=== PATIENT | male | born 1950 | race Caucasian/White ===

== ENCOUNTER 2019-06-08 20:38 | Inpatient (IN) | payer MEDICARE, OTHER ==
[~2019-06-08] VITALS: Ht 177.8 cm; Wt 123.4 kg
[~2019-06-08 20:38] MED LIST: AMLO5TAB9 PO; ATOR40TA28 PO; CLOP75TA3 PO; FAMO-136 PO; FURO20 PO; GABA-533 PO; ISOS60TA4 PO; LOSA50TA64 PO; METF-960 PO; METO-296 PO; PANT40TA25 PO; RIVA15T PO
[2019-06-08] MEDS ORDERED: MORPHINE SULFATE 4 MG/ML SYRINGE IVP ONE (20:45)
[2019-06-08 21:34] LABS: BASOPHILS % (AUTO) 0.5 % (0.0-2.0); EOSINOPHILS % (AUTO) 0.3 % (1.0-6.0); HEMATOCRIT 45.3 % (41-53); HEMOGLOBIN 14.4 g/dL (13.5-17.5); LYMPHOCYTES % (AUTO) 26.7 % (22.0-44.0); MEAN CORPUSCULAR HEMOGLOBIN 26.6 pg (26.0-34.0); MEAN CORPUSCULAR HGB CONC 31.9 G/dL (31.0-37.0); MEAN CORPUSCULAR VOLUME 84 fL (80-100); MONOCYTES # (AUTO) 1.2 K/uL (0.1-1.0); MONOCYTES % (AUTO) 6.6 % (2.0-9.0); NEUTROPHILS # (AUTO) 12.2 K/uL (1.8-7.7); NEUTROPHILS % (AUTO) 65.9 % (40.0-70.0); RED BLOOD CELL COUNT(AUTO) 5.42 MIL/uL (4.50-5.90); RED CELL DISTRIBUTION WIDTH 17.5 % (11.5-14.5)
[2019-06-08 21:48] LABS: ALANINE AMINOTRANSFERASE 46 U/L (12-78); ALBUMIN 2.3 g/dL (3.4-5.0); ALKALINE PHOSPHATASE 207 U/L (46-116); ANION GAP 12 mmol/L (8-16); ASPARTATE AMINOTRANSFERASE 131 U/L (15-37); CARBON DIOXIDE 26 mmol/L (22-29); CHLORIDE 105 mmol/L (98-107); CREATININE 2.06 mg/dL (0.60-1.30); GLOMERULAR FILTR. RATE CALC 32 mL/min (>60); GLUCOSE,RANDOM 311 mg/dL (70-110); SODIUM SERUM 143 mmol/L (136-145); TOTAL PROTEIN, SERUM 8.6 g/dL (6.4-8.2); UREA NITROGEN, BLOOD 68 mg/dL (7-18)
[2019-06-08 21:53] LABS: LACTIC ACID 5.9 mmol/L (0.4-2.0)
[2019-06-08 21:54] LABS: CALCIUM, TOTAL 12.5 mg/dL (8.8-10.5)
[2019-06-08 22:00] LABS: PLATELET COUNT (AUTO) 183 K/uL (150-450); PLATELET MORPHOLOGY COMMENT NORMAL
[2019-06-08] MEDS ORDERED: SODIUM CHLORIDE 0.9% 3,650 ML IV ONE (22:00)
[2019-06-08] MEDS ORDERED: CEFEPIME HCL 1 GM in DEXTROSE 5%-WATER 50 ML IV ONE (22:00)
[2019-06-08] MEDS ORDERED: VANCOMYCIN HCL 1.5 GM in DEXTROSE 5%-WATER 250 ML IV ONE (22:00)
[2019-06-08] MEDS ORDERED: ONDANSETRON HCL 4 MG/2 ML VIAL IVP PRN ×2 (22:15)
[2019-06-08] MEDS ORDERED: ACETAMINOPHEN 325 MG TABLET PO PRN ×2 (22:15)
[2019-06-08] MEDS ORDERED: 0.9% SODIUM CHLORIDE 10 ML SYRINGE IVP PRN ×2 (22:15)
[2019-06-08] MEDS ORDERED: MORPHINE SULFATE 4 MG/ML SYRINGE IVP PRN (22:15)
[2019-06-08 23:20] VITALS: BP 97/55
[2019-06-09] MEDS ORDERED: ONDANSETRON HCL 4 MG/2 ML VIAL IVP PRN (00:15)
[2019-06-09] MEDS ORDERED: DEXTROSE 50%-WATER 25 GM/50 ML SYRINGE IVP PRN (00:15)
[2019-06-09] MEDS ORDERED: IPRATROPIUM BROMIDE 0.5 MG/2.5 ML NEB SOLUTION NEB PRN (00:15)
[2019-06-09] MEDS ORDERED: 0.9% SODIUM CHLORIDE 10 ML SYRINGE IVP PRN (00:15)
[2019-06-09] MEDS ORDERED: INSULIN LISPRO 100 UNITS/ML SQ PRN (00:15)
[2019-06-09] MEDS ORDERED: HEPARIN SODIUM,PORCINE 5,000 UNITS/ML VIAL SQ SCH (00:15)
[2019-06-09] MEDS ORDERED: ALBUTEROL SULFATE 2.5 MG/0.5 ML NEB SOLUTION NEB PRN (00:15)
[2019-06-09] MEDS ORDERED: *CLINICAL-CEFEPIME DOSING CLINICAL ONE (00:15)
[2019-06-09] MEDS: IPRATROPIUM BROMIDE 0.5 MG/2.5 ML NEB SOLUTION NEB SCH ×2 (02:00→07:58)
[2019-06-09] MEDS ORDERED: VANCOMYCIN HCL 1.5 GM in DEXTROSE 5%-WATER 250 ML IV SCH (07:00)
[2019-06-09 20:14] LABS: GLUCOMETER DEV NAME(LOC) 4E.2; GLUCOSE,POINT OF CARE 192 MG/DL (70-110)
[2019-06-09] MEDS ORDERED: CEFEPIME HCL 1 GM in DEXTROSE 5%-WATER 50 ML IV SCH (22:00)
== END 2019-06-09 06:15 | disposition expired | DRG 871 ==
LOC: EMS 20:38 → 5S 22:00 → 4E 23:15
PROVIDERS: ADMIT Internal Medicine; ATTEND Internal Medicine
DX: A41.9 Sepsis, unspecified organism (principal); J96.91 Respiratory failure, unspecified with hypoxia; G93.40 Encephalopathy, unspecified; E87.2 Acidosis; E11.9 Type 2 diabetes mellitus without complications; R65.20 Severe sepsis without septic shock; I10 Essential (primary) hypertension; E78.5 Hyperlipidemia, unspecified; K59.00 Constipation, unspecified; E83.52 Hypercalcemia; Z51.5 Encounter for palliative care; E78.00 Pure hypercholesterolemia, unspecified; Z66 Do not resuscitate; Z90.49 Acquired absence of other specified parts of digestive tract; Z85.05 Personal history of malignant neoplasm of liver; Z83.3 Family history of diabetes mellitus; Z82.49 Family history of ischemic heart disease and other diseases of the circulatory system
CPT/HCPCS: 83605; 87040; 87081; 87205; 96365; 99291; 99292; G0378; J0692; J1644; J2270; J3370; J7030; J7060